=== PATIENT | male | born 1970 | race Caucasian/White ===

== ENCOUNTER → 2019-04-21 | Outpatient (CLI) | payer OTHER ==
[~2019-04-21] MED LIST: AMOX500 PO; AMOX875 PO; CYCL10 PO; FENO67 PO; GABA600 PO; HYDACE5 PO; IBUP800 PO; Lisinopril2.5 MG; Naprosyn500 MG PO; Norco 5-325 Ta1 EACH PO; OMEP20ER PO; OXYACE5T PO; PENVK500 PO; PROACE100 PO; Prinivil5 MG PO; Veetids 500500 MG PO
[2019-04-21 14:49] LABS: BASOPHILS ABSOLUTE AUTO 0.08 K/mm3 (0.00-0.23); BASOPHILS PERCENT AUTO 1 % (0-2); EOSINOPHILS ABSOLUTE AUTO 0.14 K/mm3 (0.00-0.68); EOSINOPHILS PERCENT AUTO 2 % (0-6); Hematocrit 53.1 % (37.0-53.0); Hemoglobin 18.5 g/dL (13.5-17.5); IMMATURE GRAN ABSOLUTE AUTO 0.04 K/mm3 (0.00-0.10); IMMATURE GRAN PERCENT AUTO 0 % (0-1); LYMPHOCYTES ABSOLUTE AUTO 3.21 K/mm3 (0.84-5.20); LYMPHOCYTES PERCENT AUTO 34 % (21-46); MONOCYTES ABSOLUTE AUTO 0.75 K/mm3 (0.16-1.47); MONOCYTES PERCENT AUTO 8 % (4-13); Mean Corpuscular HGB 33.1 pg (26.0-34.0); Mean Corpuscular HGB Conc 34.8 g/dL (31.5-36.5); Mean Corpuscular Volume 95 fL (80-100); Mean Platelet Volume 9.5 fL (9.1-12.4); NEUTROPHILS ABSOLUTE AUTO 5.29 K/mm3 (1.96-9.15); NEUTROPHILS PERCENT AUTO 56 % (41-73); Platelet Count 265 K/mm3 (150-400); RDW Standard Deviation 41.6 fL (35.1-46.3); Red Blood Cell Count 5.59 M/mm3 (4.30-5.90); White Blood Cell Count 9.51 K/mm3 (4.00-11.30)
[2019-04-21 15:06] LABS: Alanine Aminotransfer (ALT/SGP 42 U/L (12-78); Albumin, Blood 4.2 g/dL (3.4-5.0); Alk Phos 66 U/L (40-126); Anion Gap 12 mmol/L (6-16); Aspartate Aminotrans (AST/SGOT 30 U/L (12-37); Bilirubin, Total 0.5 mg/dL (0.1-1.0); Blood Urea Nitrogen 9 mg/dL (8-24); Bun/Creatinine Ratio 11.7 (12.0-20.0); CO2, Blood 24 mmol/L (21-32); Calcium, Blood 9.3 mg/dL (8.5-10.1); Chloride, Blood 105 mmol/L (98-108); Creatinine, Blood 0.77 mg/dL (0.60-1.20); Globulin, Blood 4.2 g/dL (2.2-4.0); Glomerular Filtration Rate >60 (60-); Glucose, Blood 122 mg/dL (70-99); Potassium, Blood 4.3 mmol/L (3.5-5.5); Sodium, Blood 141 mmol/L (136-145); Total Protein, Blood 8.4 g/dL (6.4-8.2); Uric Acid, Blood 8.3 mg/dL (3.5-7.2)
[2019-04-23 11:03] LABS: Antinuclear Antibody Screen Negative (Negative)
[2019-04-23 13:32] LABS: Rheumatoid Factor, Serum Negative (Negative)
== END | disposition home or self-care (01) ==
LOC: LAB EV 14:40 → LAB SHORT 14:40
PROVIDERS: General Practice
DX: M19.90 Unspecified osteoarthritis, unspecified site (principal)
CPT/HCPCS: 80053; 84550; 85025; 85651; 86038; 86200; 86430

== ENCOUNTER 2019-05-14 21:24 | Emergency (ER) | payer OTHER ==
[~2019-05-14] VITALS: Ht 170.2 cm; Wt 90.7 kg
[~2019-05-14 21:24] MED LIST changes: -FENO67 PO; -GABA600 PO
[2019-05-14] MEDS ORDERED: FENO67 PO (22:06)
[2019-05-14] MEDS ORDERED: GABA600 PO (22:06)
== END 2019-05-14 23:04 | disposition home or self-care (01) ==
LOC: ER 21:24
DX: S63.616A Unspecified sprain of right little finger, initial encounter (principal); W22.8XXA Striking against or struck by other objects, initial encounter; Z79.899 Other long term (current) drug therapy; I10 Essential (primary) hypertension; E78.5 Hyperlipidemia, unspecified; F17.200 Nicotine dependence, unspecified, uncomplicated
CPT/HCPCS: 29130; 73110; 73130; 99283-25

== ENCOUNTER 2019-08-05 11:41 | Emergency (ER) | payer OTHER ==
[~2019-08-05] VITALS: Ht 167.6 cm; Wt 96.6 kg
[~2019-08-05 11:41] MED LIST changes: +FENO67 PO; +GABA600 PO
[2019-08-05 12:34] LABS: BASOPHILS ABSOLUTE AUTO 0.07 K/mm3 (0.00-0.23); BASOPHILS PERCENT AUTO 1 % (0-2); EOSINOPHILS ABSOLUTE AUTO 0.27 K/mm3 (0.00-0.68); EOSINOPHILS PERCENT AUTO 4 % (0-6); Hematocrit 52.8 % (37.0-53.0); Hemoglobin 18.4 g/dL (13.5-17.5); IMMATURE GRAN ABSOLUTE AUTO 0.08 K/mm3 (0.00-0.10); IMMATURE GRAN PERCENT AUTO 1 % (0-1); LYMPHOCYTES PERCENT AUTO 37 % (21-46); MONOCYTES ABSOLUTE AUTO 0.58 K/mm3 (0.16-1.47); MONOCYTES PERCENT AUTO 8 % (4-13); Mean Corpuscular HGB 33.2 pg (26.0-34.0); Mean Corpuscular HGB Conc 34.8 g/dL (31.5-36.5); Mean Corpuscular Volume 95 fL (80-100); Mean Platelet Volume 9.7 fL (9.1-12.4); NEUTROPHILS ABSOLUTE AUTO 3.87 K/mm3 (1.96-9.15); NEUTROPHILS PERCENT AUTO 51 % (41-73); Platelet Count 278 K/mm3 (150-400); RDW Coefficient Variation 12.2 % (11.7-14.2); RDW Standard Deviation 43.1 fL (35.1-46.3); Red Blood Cell Count 5.54 M/mm3 (4.30-5.90); White Blood Cell Count 7.67 K/mm3 (4.00-11.30)
[2019-08-05 12:48] LABS: International Normalized Ratio 0.97; Prothrombin Time Results 10.3 Sec (9.7-11.5)
[2019-08-05 12:56] LABS: Alanine Aminotransfer (ALT/SGP 47 U/L (12-78); Albumin, Blood 3.9 g/dL (3.4-5.0); Albumin/Globulin Ratio 0.9 (0.8-1.8); Alk Phos 57 U/L (50-136); Anion Gap 5 mmol/L (6-16); Aspartate Aminotrans (AST/SGOT 27 U/L (12-37); Bilirubin, Total 0.6 mg/dL (0.1-1.0); Blood Urea Nitrogen 10 mg/dL (8-24); Bun/Creatinine Ratio 16.9 (12.0-20.0); CO2, Blood 24 mmol/L (21-32); Calcium, Blood 9.1 mg/dL (8.5-10.1); Chloride, Blood 106 mmol/L (98-108); Creatinine, Blood 0.59 mg/dL (0.60-1.20); Globulin, Blood 4.3 g/dL (2.2-4.0); Glomerular Filtration Rate >60 (60-); Glucose, Blood 150 mg/dL (70-99); Potassium, Blood 4.1 mmol/L (3.5-5.5); Sodium, Blood 135 mmol/L (136-145); Total Protein, Blood 8.2 g/dL (6.4-8.2); Troponin I 0.061 ng/mL (0.000-0.040)
== END 2019-08-05 14:56 | disposition home or self-care (01) ==
LOC: ER 11:41
PROVIDERS: Physician Assistant
DX: R79.89 Other specified abnormal findings of blood chemistry (principal); I10 Essential (primary) hypertension; G47.30 Sleep apnea, unspecified; E78.5 Hyperlipidemia, unspecified; F17.200 Nicotine dependence, unspecified, uncomplicated; Z79.899 Other long term (current) drug therapy
CPT/HCPCS: 36415; 71046; 80053; 84484; 85025; 85610; 93005; 93010; 99284-25

== ENCOUNTER 2022-11-08 11:02 | Emergency (ER) | payer MEDICAID ==
[~2022-11-08] VITALS: Ht 170.2 cm; Wt 86.2 kg
== END 2022-11-08 13:10 | disposition home or self-care (01) ==
LOC: ER 11:02
DX: S90.32XA Contusion of left foot, initial encounter (principal); I10 Essential (primary) hypertension; F17.210 Nicotine dependence, cigarettes, uncomplicated; X50.1XXA Overexertion from prolonged static or awkward postures, initial encounter; Z79.899 Other long term (current) drug therapy
CPT/HCPCS: 73610

== ENCOUNTER 2025-03-14 14:05 | Emergency (ER) | payer OTHER ==
[~2025-03-14] VITALS: Ht 170.2 cm; Wt 89.8 kg
[~2025-03-14 14:05] MED LIST changes: +ASPIR 8181 M1 PO; +B-1100 M1 PO; +CALCIUM CARBON500 M1 PO; +IRBE150 PO; +LOPE2C PO; +MAGNESIUM OXID500 MG PO; +MULVITA PO; +OLMESARTAN MEDO20 MG PO; +ROSUVASTATIN CA20 MG PO; +VITAMIN D5000 UNIT PO
[2025-03-14 14:42] LABS: BASOPHILS ABSOLUTE AUTO 0.08 K/mm3 (0.00-0.23); BASOPHILS PERCENT AUTO 1 % (0-2); EOSINOPHILS ABSOLUTE AUTO 0.07 K/mm3 (0.00-0.68); EOSINOPHILS PERCENT AUTO 1 % (0-6); Hematocrit 28.5 % (37.0-53.0); Hemoglobin 10.4 g/dL (13.5-17.5); IMMATURE GRAN ABSOLUTE AUTO 0.06 K/mm3 (0.00-0.10); IMMATURE GRAN PERCENT AUTO 0 % (0-1); LYMPHOCYTES ABSOLUTE AUTO 2.21 K/mm3 (0.84-5.20); LYMPHOCYTES PERCENT AUTO 16 % (21-46); MONOCYTES ABSOLUTE AUTO 0.86 K/mm3 (0.16-1.47); MONOCYTES PERCENT AUTO 6 % (4-13); Mean Corpuscular HGB Conc 36.5 g/dL (31.5-36.5); Mean Corpuscular Volume 111 fL (80-100); NEUTROPHILS ABSOLUTE AUTO 10.93 K/mm3 (1.96-9.15); NEUTROPHILS PERCENT AUTO 77 % (41-73); NRBC ABSOLUTE 0.00 K/mm3 (0.00-0.02); NRBC Auto 0.0 /100 WBC (0.0-0.2); Platelet Count 239 K/mm3 (150-400); RDW Coefficient Variation 18.3 % (11.7-14.2); RDW Standard Deviation 73.3 fL (35.1-46.3)
[2025-03-14 15:31] LABS: Alanine Aminotransfer (ALT/SGP 147.0 U/L (12-78); Albumin, Blood 4.0 g/dL (3.4-5.0); Albumin/Globulin Ratio 1.1 (0.8-1.8); Anion Gap 14.0 mmol/L (3-11); Aspartate Aminotrans (AST/SGOT 166.0 U/L (12-37); Bilirubin, Total 0.7 mg/dL (0.1-1.0); Blood Urea Nitrogen 7.0 mg/dL (8-24); CO2, Blood 18.0 mmol/L (21-32); Calcium, Blood 6.8 mg/dL (8.5-10.1); Chloride, Blood 105.0 mmol/L (98-108); Creatinine, Blood 0.83 mg/dL (0.60-1.20); Globulin, Blood 3.6 g/dL (2.2-4.0); Glucose, Blood 110.0 mg/dL (70-99); Magnesium, Blood 0.6 mg/dL (1.6-2.4); Potassium, Blood 3.5 mmol/L (3.5-5.5); Sodium, Blood 133.0 mmol/L (136-145); Total Protein, Blood 7.6 g/dL (6.4-8.2)
[2025-03-14] MEDS ORDERED: Magnesium Sulf 2 GM/Water 50ML 50 ML IV ONE (16:20)
[2025-03-14 18:30] VITALS: BP 144/81
== END 2025-03-14 18:37 | disposition home or self-care (01) ==
LOC: ER 14:05
PROVIDERS: Student in an Organized Health Care Education/Training Program
DX: E83.42 Hypomagnesemia (principal); F10.90 Alcohol use, unspecified, uncomplicated; I10 Essential (primary) hypertension; E78.5 Hyperlipidemia, unspecified
CPT/HCPCS: 80053; 83735; 85025; 93005; 93010; 96365; 96366; 99283-25; J3475

== ENCOUNTER → 2025-07-03 | Outpatient (CLI) | payer OTHER ==
[2025-07-05 13:55] LABS: CALPROTECTIN,FECAL 17 ug/g (<=49)
[2025-07-06 11:46] LABS: PANCREATIC ELASTASE,FECAL >800 ug/g (>=100)
== END ==
LOC: LAB SHORT 05:30 → LAB 05:30
PROVIDERS: Student in an Organized Health Care Education/Training Program
DX: K52.9 Noninfective gastroenteritis and colitis, unspecified (principal)
CPT/HCPCS: 82653; 83993

== ENCOUNTER → 2025-08-13 | Outpatient (CLI) | payer OTHER ==
[2025-08-13 13:03] LABS: BASOPHILS ABSOLUTE AUTO 0.04 K/mm3 (0.00-0.23); BASOPHILS PERCENT AUTO 0 % (0-2); EOSINOPHILS ABSOLUTE AUTO 0.15 K/mm3 (0.00-0.68); EOSINOPHILS PERCENT AUTO 1 % (0-6); Hematocrit 49.5 % (37.0-53.0); Hemoglobin 16.4 g/dL (13.5-17.5); IMMATURE GRAN ABSOLUTE AUTO 0.10 K/mm3 (0.00-0.10); IMMATURE GRAN PERCENT AUTO 1 % (0-1); LYMPHOCYTES ABSOLUTE AUTO 2.46 K/mm3 (0.84-5.20); LYMPHOCYTES PERCENT AUTO 15 % (21-46); MONOCYTES ABSOLUTE AUTO 1.09 K/mm3 (0.16-1.47); MONOCYTES PERCENT AUTO 7 % (4-13); Mean Corpuscular HGB Conc 33.1 g/dL (31.5-36.5); Mean Corpuscular Volume 76 fL (80-100); NEUTROPHILS ABSOLUTE AUTO 12.31 K/mm3 (1.96-9.15); NEUTROPHILS PERCENT AUTO 76 % (41-73); NRBC ABSOLUTE 0.00 K/mm3 (0.00-0.02); NRBC Auto 0.0 /100 WBC (0.0-0.2); Platelet Count 240 K/mm3 (150-400); RDW Coefficient Variation 17.9 % (11.7-14.2); RDW Standard Deviation 44.1 fL (35.1-46.3)
[2025-08-13 13:15] LABS: Alanine Aminotransfer (ALT/SGP 26.0 U/L (12-78); Albumin, Blood 4.0 g/dL (3.4-5.0); Albumin/Globulin Ratio 0.9 (0.8-1.8); Anion Gap 17.0 mmol/L (3-11); Aspartate Aminotrans (AST/SGOT 16.0 U/L (12-37); Bilirubin, Total 0.5 mg/dL (0.1-1.0); Blood Urea Nitrogen 21.0 mg/dL (8-24); CO2, Blood 23.0 mmol/L (21-32); Calcium, Blood 9.7 mg/dL (8.5-10.1); Chloride, Blood 95.0 mmol/L (98-108); Creatinine, Blood 1.3 mg/dL (0.60-1.20); Globulin, Blood 4.6 g/dL (2.2-4.0); Glucose, Blood 117.0 mg/dL (70-99); Potassium, Blood 4.5 mmol/L (3.5-5.5); Sodium, Blood 130.0 mmol/L (136-145); Total Protein, Blood 8.6 g/dL (6.4-8.2)
== END | disposition home or self-care (01) ==
LOC: LAB 13:00 → LAB SHORT 13:00
PROVIDERS: Chiropractor
DX: R10.9 Unspecified abdominal pain (principal); R82.90 Unspecified abnormal findings in urine
CPT/HCPCS: 80053; 83690; 85025; 87086